=== PATIENT | female | born 1945 | race Caucasian/White ===

== ENCOUNTER → 2017-08-17 | Outpatient (CLI) | payer MEDICARE, MEDICAID ==
[2016-10-07 10:47] VITALS: BMI 32.9
[~2017-08-17] MED LIST: ASPI-1064 PO; ASPI-757 PO; CALC500T42 PO; DOC100 PO; GLUC500C29 PO; HYDR-2966 PO; KET10 PO; LISI-368 PO; MELO7.5O4 PO; METF-420 PO; OLME5TAB8 PO; OMEP-218 PO; OXYC-865 PO; PER PO; PRO25 PO; SITA1TAB17 PO; VITA200T PO; WOMENS ONE A DAY; [UNRECOGNIZED DRUG - CODE] PO
--- NOTE | 2017-08-17 16:41 | RADIOLOGY IMAGING REPORT ---
FACILITY: [facility] [place] PATIENT NAME: Cynthia Clemons : 1945 MR: [id number] V: [id number] EXAM DATE: ORDERING PHYSICIAN: CARLA ROLON TECHNOLOGIST: Location: [facility] Patient: Cynthia Clemons : 1945 Visit/Account:[id number] Date of Sevice: 08/17/2017 Exam type: WRIST RIGHT 2 VIEW History: Pain in right wrist Comparison: None. Findings: Two views of the right wrist demonstrate moderate degenerative changes at the right first and second carpal metacarpal articulations. There also appear to be moderate degenerative changes at the navicu lar trapezium articulation cystic changes are seen in the capitate. No definite fracture dislocation is seen on this limited two-view study. IMPRESSION: 1. Degenerative changes of the right wrist as described with no definite fracture dislocation seen o n this limited two-view study Report Dictated By: Di Adler MD at 08/17/2017 4:33 PM Report E-Signed By: Di Adler MD at 08/17/2017 4:37 PM WSN:[id number]
== END ==
LOC: RAD 15:37
PROVIDERS: ATTEND Family Medicine
DX: M19.031 Primary osteoarthritis, right wrist (principal)

== ENCOUNTER 2018-05-31 20:17 | Emergency (ER) | payer MEDICARE, MEDICAID ==
[2016-10-07 10:47] VITALS: Wt 73.5 kg
[~2018-05-31 20:17] MED LIST changes: -ACYC200O6 PO
[2018-05-31 20:23] VITALS: BP 124/88
[2018-05-31] MEDS ORDERED: PROPARACAINE 0.5% OP 15ML BTL ONE (20:31)
[2018-05-31] MEDS ORDERED: FLUORESCEIN SOD 1 MG 1 EA STRP ONE (20:31)
--- NOTE | 2018-05-31 21:12 | ER Report ---
History and Physical Time Seen By MD: 20:25 Hx. of Stated Complaint: got something in left eye. can feel it moving around. tried to flush it for an hour before calling ems HPI/ROS CHIEF COMPLAINT: Eye pain HISTORY OF PRESENT ILLNESS: 73-year-old female wears glasses, presents with sudden onset of pain that happened 2 hours prior to arrival in left eye. She felt like she may have gotten something in it, though it started when she was reading. She notes blurred vision and continued eye pain and foreign body sensation. EMS was called and attempted to flush with saline without relief. Patient presents with gauze covering over eye. Patient has not had fevers, chills, rashes or sores. She has no known history of HSV. She did have a hip replacement just under one month ago. She had been on tramadol but has not taken pain meds in the last 24 hours. REVIEW OF SYSTEMS: Constitutional: No fever, no chills. Eyes: above ENT: No sore throat. Cardiovascular: No chest pain, no palpitations. Respiratory: No cough, no shortness of breath. Gastrointestinal: No abdominal pain, no vomiting. Genitourinary: no dysuria Musculoskeletal: No back pain. Skin: No rashes. Neurological: No headache. Remainder of the 14 system rev: Yes Allergies: Coded Allergies: pumpkin (Verified Allergy, Severe, "throat closes" , 05/31/18) Sulfa (Sulfonamide Antibiotics) (Unverified Adverse Reaction, Unknown, 05/31/18) SULFA DOESN'T WORK ANYMORE Uncoded Allergies: GREEN PEPPER (Allergy, Severe, UNKNOWN, 09/14/11) SQUASH (Allergy, Severe, UNKNOWN, 07/14/10) SWEET POTATOES (Allergy, Severe, UNKNOWN, 07/14/10) Home Meds Active Scripts Acyclovir (ACYCLOVIR) 200 Mg/5 Ml Oral.susp, 400 MG PO five times daily for 7 Days, #350 ML Prov:JAMISON FENG MD 05/31/18 Aspirin (ASPIRIN) 325 Mg Tablet, 325 MG PO QHS, #30 TAB Prov:ROYCE SHIPMAN DO 10/09/16 Reported Medications Oxycodone Hcl/Acetaminophen (PERCOCET 5-325 MG TABLET) 1 Each Tablet, 1-2 EACH PO Q4-6H PRN for PAIN, TAB 10/07/16 Sitagliptin Phos/Metformin Hcl (JANUMET 50-1,000 MG TABLET) 1 Each Tablet, 1 EACH PO BID 10/17/14 Omeprazole Magnesium (Prilosec Otc) 20 Mg Tablet.dr, 20 MG PO QDAY, 0 Refills 07/30/10 Reviewed Nurses Notes: Yes Old Medical Records Reviewed: Yes Hx Smoking: No (quit 2011, 0.5 ppd ) Smoking Status: Former Smoker Hx Substance Use Disorder: No Hx Alcohol Use: Yes Constitutional Vital Sign - Last 24 Hours 05/31/18 20:23 Temp 98.6 Pulse 95 Resp 12 B/P (MAP) 124/88 Pulse Ox 95 Physical Exam General Appearance: The patient is alert, has no immediate need for airway protection and no signs of toxicity. Eyes: Left dendrites. No FB on lid eversion. Slit lamp exam - Lids/lacrima/lashes nl Conjunctiva - mild injection Cornea - dendritic pattern of fluorescein uptake lower 1/2 of cornea. Anterior chamber - deep and quiet/ no cell/flare Lens - nl Visual acuity - 20/200 OU uncorrected; 20/100 OU corrected. Globes soft ENT, Mouth: Mucous membranes are moist. No lesions TMs, canals, nose, oropharynx Respiratory: There are no retractions, lungs are clear to auscultation. Cardiovascular: Regular rate and rhythm. Neurological: alert, oriented Skin: Warm and dry, no rashes. Musculoskeletal: Neck is supple non tender. Extremities are nontender, nonswollen and have full range of motion. DIFFERENTIAL DIAGNOSIS: After history and physical exam differential diagnosis was considered for foreign body, conjunctival abrasion, HSV keratitis Medical Decision Making ED Course/Re-evaluation ED Course 73 f 1 mo s/p hip replacement presents with l eye pain; findings are most c/w hsv keratitis, though may be atypical corneal abrasion. Of note, she stopped her hydrocodone/tramadol today thus may have been developing keratitis prior to tonight. I consulted [facility] [place] [facility] who requests oral acyclovir and corneal specialist f/u. Pt states she may not be able to make it to [place], so I have also offered local building maintenance custodian contact info for initial evaluation. Pt is amenable to this plan and understands SRp's. Decision to Disposition Date: May 31, 2018 Decision to Disposition Time: 22:20 Depart Departure Latest Vital Signs Vital Signs Date Time Temp Pulse Resp B/P (MAP) Pulse Ox O2 Delivery O2 Flow Rate FiO2 05/31/18 20:23 98.6 95 12 124/88 95 Impression: Primary Impression: Herpes keratitis Condition: Improved Disposition: HOME OR SELF-CARE Referrals: CARLA ROLON DO (PCP) 5 Days ALTHEA IBARRA MD 1 Day New Scripts Acyclovir (ACYCLOVIR) 200 Mg/5 Ml Oral.susp 400 MG PO five times daily for 7 Days, #350 ML Prov: JAMIOSN FENG MD 05/31/18 Patient Instructions: Keratitis (ED) Additional Instructions: As we discussed, please take your medication every 5 hours for 7 days. The prescription is in liquid form because this is what is available on your formulary. Please call with any questions. Please call tomorrow for ophthalmology follow-up. As we discussed, you may either call the local building maintenance custodian if you are unable to easily get to [facility], or you may call [facility] at [phone]. Please call tomorrow to arrange follow-up this week. Please return immediately for worsening vision, uncontrolled pain or any concerns. You stated your pain medications at home and you may take these as you needed. JAMISON FENG MD May 31, 2018 21:12
[2018-05-31] MEDS ORDERED: ACYCLOVIR 200 MG CAP PO ONE ×2 (22:00→22:10)
[2018-05-31] MEDS ORDERED: ACYC200O6 PO (22:15)
== END 2018-05-31 22:24 | disposition home or self-care (01) ==
LOC: ER 20:32
DX: B00.52 Herpesviral keratitis (principal)
CPT/HCPCS: 99283; A9270

== ENCOUNTER → 2018-05-31 | Outpatient (CLI) | payer MEDICARE, MEDICAID ==
[2016-10-07 10:47] VITALS: BMI 32.9
[~2018-05-31] MED LIST changes: +ACYC200O6 PO
== END ==
LOC: AMB 19:54
PROVIDERS: ATTEND Nurse Practitioner
DX: T15.12XA Foreign body in conjunctival sac, left eye, initial encounter (principal)
CPT/HCPCS: A0425; A0429